=== PATIENT | female | born 1990 | race African-American/Black ===

== ENCOUNTER 2019-02-20 19:38 | Emergency (ER) | payer MEDICAID ==
[~2019-02-20] VITALS: Ht 160 cm; Wt 61.4 kg
[~2019-02-20 19:38] MED LIST: IBUPROFEN600 MG PO; PERCOCET 5-3251 TAB PO; PRENAVITE1 TAB PO
[2019-02-20 19:46] VITALS: Ht 160 cm; Wt 61.4 kg
[2019-02-20] MEDS ORDERED: ACETAMINOPHEN500 M1 PO (20:52)
[2019-02-20] MEDS ORDERED: CYCLOBENZAPRINE10 MG PO (20:52)
[2019-02-20] MEDS ORDERED: IBUPROFEN800 MG PO (20:52)
[2019-02-20 21:39] VITALS: BP 92/59
== END 2019-02-20 21:40 | disposition home or self-care (01) ==
LOC: D.ER 19:38
DX: S93.402A Sprain of unspecified ligament of left ankle, initial encounter (principal); W08.XXXA Fall from other furniture, initial encounter; Y93.89 Activity, other specified; Y92.019 Unspecified place in single-family (private) house as the place of occurrence of the external cause; M79.18 Myalgia, other site